=== PATIENT | male | born 1960 | race African-American/Black ===

== ENCOUNTER → 2016-09-08 | Outpatient (CLI) | payer SELFPAY ==
--- NOTE | 2016-09-08 13:55 | RAD ---
HISTORY: Abdominal pain and nausea Study: Acute abdominal series Comparison: None Findings: The trachea is midline. The cardiac silhouette is unremarkable. The lungs are clear without focal infiltrate or effusion. The bony thorax is unremarkable. Flat plate and upright evaluation of the abdomen demonstrates a normal bowel gas pattern. No pathol ogical soft tissue mass or calcification can be observed. There is moderate levoscoliosis of the lum bar spine.. IMPRESSION: 1. No acute cardiopulmonary disease. 2. No evidence for acute abdominal pathology identified. Reported By:
== END ==
LOC: RAD 13:23
PROVIDERS: ATTEND Obstetrics & Gynecology Obstetrics
DX: R10.84 Generalized abdominal pain (principal)
CPT/HCPCS: 74022